=== PATIENT | female | born 1975 | race Caucasian/White ===

== ENCOUNTER 2019-11-20 00:05 | Emergency (ER) | payer SELFPAY ==
[2019-11-20] MEDS ORDERED: MORPHINE SULFATE 10 MG/ML INJ IV ONE ×2 (00:23→06:44)
[2019-11-20] MEDS ORDERED: ONDANSETRON HCL INJ/PF 4 MG/2 ML SDV IV ONE (00:23)
[2019-11-20] MEDS ORDERED: NORMAL SALINE 1000 ML 1,000 ML IV ONE (00:23)
--- NOTE | 2019-11-20 00:31 | ER Document Report ---
ED GI/ - General Chief Complaint: Pelvic Pain Stated Complaint: PELVIC PAIN Time Seen by Provider: 11/20/19 00:18 Primary Care Provider: [facility] [Provider Group] - Follow up in 3-5 days Notes: Patient is a 44-year-old female that comes to the Emergency Department for chief complaint of sudden onset right lower abdominal/pelvic pain that started about 1 hour prior to arrival. She states pain is become very sharp, radiates to her lower back, has made her nauseated. She denies vomiting, fever, vaginal bleeding or discharge. She reports a history of PCOS and has had torsion surgically repaired in the past. She denies history of kidney stones. She also has a history of gastric bypass, appendectomy, cholecystectomy, hiatal hernia repair, peptic ulcers, and anemia. She states her last menstrual cycle was in 2017. - Related Data Allergies/Adverse Reactions: acetaminophen [From Percocet] Allergy (Severe, Verified 11/20/19 02:12) Hives oxycodone [From Percocet] Allergy (Severe, Verified 11/20/19 02:12) Hives ketorolac [From Toradol] Allergy (Intermediate, Verified 11/20/19 02:12) Past Medical History - General Information source: Patient - Social History Smoking Status: Never Smoker Frequency of alcohol use: None Drug Abuse: None Lives with: Family Family History: Reviewed & Not Pertinent Renal/ Medical History: Reports: Hx Ovarian Cysts GI Medical History: Reports: Hx Gastroesophageal Reflux Disease, Hx Hiatal Hernia, Hx Ulcer Past Surgical History: Reports: Hx Appendectomy, Hx Cholecystectomy, Hx Gastric Bypass Surgery - Immunizations Hx Diphtheria, Pertussis, Tetanus Vaccination: Yes Review of Systems - Review of Systems Constitutional: No symptoms reported EENT: No symptoms reported Cardiovascular: No symptoms reported Respiratory: No symptoms reported Gastrointestinal: See HPI Genitourinary: See HPI Female Genitourinary: See HPI Musculoskeletal: No symptoms reported Skin: No symptoms reported Hematologic/Lymphatic: No symptoms reported Neurological/Psychological: No symptoms reported Physical Exam - Vital signs Vitals: Temp Pulse Resp BP Pulse Ox 98.0 F 83 16 135/97 H 100 11/20/19 00:14 11/20/19 00:14 11/20/19 00:14 11/20/19 00:14 11/20/19 00:14 - Notes Notes: GENERAL: Patient anxious, restless, appears to be uncomfortable HEAD: Normocephalic, atraumatic. EYES: Pupils equal, round, and reactive to light. Extraocular movements intact. ENT: Oral mucosa moist, tongue midline. Oropharynx unremarkable. Airway patent. NECK: Full range of motion. Supple. Trachea midline. No lymphadenopathy. LUNGS: Clear to auscultation bilaterally, no wheezes, rales, or rhonchi. No respiratory distress. Non-tender chest wall. HEART: Regular rate and rhythm. No murmur ABDOMEN: There is tenderness in the general lower abdomen, worse on the right in the lower abdominal/pelvic region. No distention or severe guarding noted. Bowel sounds are present. GENITOURINARY: Deferred EXTREMITIES: Moves all 4 extremities spontaneously. No edema, normal radial and dorsalis pedis pulses bilaterally. No cyanosis. BACK: no cervical, thoracic, lumbar midline tenderness. No saddle anesthesia, normal distal neurovascular exam. Moves all extremities in full range of motion. NEUROLOGICAL: Alert and oriented x3. Normal speech. Cranial nerves II through XII grossly intact. Strength 5/5 in all extremities. PSYCH: Anxious and restless SKIN: Warm, dry, normal turgor. No rashes or lesions noted. Course - Re-evaluation Re-evalutation: Patient initially very anxious, she does have tenderness in the right lower abdominal area and in the lower abdomen generally. She denies any concerns for STD, she does not have vaginal bleeding or discharge. Ultrasound was performed but was negative. CBC unremarkable, chemistry unremarkable, urinalysis showing infection. Culture placed. Started on Rocephin. On reevaluation patient is anxious, holding her abdomen, stating she is in pain again. Because of her sudden onset pain, UTI, and the area being worse on the right along with some pain in her flank I am concerned this could be an infected ureterolithiasis, CT will be performed. X-ray does not show foreign body. CT does show retained aluminum foreign body in the right lower abdomen. No perforation, no obstruction, no concerning findings. Patient is already had an appendectomy, there is no passing stone. Discussed with Dr. Rooney, she recommends I speak with surgery. 11/20/19 06:30 I called and spoke with Dr. Isidro in regards to the retained aluminum foreign body in the location of patient's pain. He states because the area is not perforated, she does not have an obstruction, the only treatment for this would be laparotomy and bowel resection, he states this is not indicated and this should pass. He recommends treatment of the infection, symptoms, with return precautions. I discussed this in detail with patient. She does state appreciation and agreement with this plan, understands return precautions. Vital signs unremarkable. Patient stable and well-appearing at time of discharge. - Vital Signs Vital signs: Temp Pulse Resp BP Pulse Ox 98.7 F 83 18 133/82 H 97 11/20/19 05:00 11/20/19 00:14 11/20/19 04:44 11/20/19 05:01 11/20/19 05:01 - Laboratory Result Diagrams: 11/20/19 01:58 11/20/19 01:30 Laboratory results interpreted by me: 11/20/19 11/20/19 00:40 01:30 AST 50 H ALT 42 H Ur Leukocyte Esterase LARGE H Urine Ascorbic Acid 20 H Discharge - Discharge Clinical Impression: Lower abdominal pain Condition: Stable Disposition: HOME, SELF-CARE Additional Instructions: You do not have an ovarian cyst. You do have a urinary tract infection, take the antibiotics as prescribed to completion. You are passing the aluminum foreign body, this is in your bowel, this does not appear to be perforated, obstructed, or to have any acute abnormality. You can take the pain medication but this can constipate you, I highly recommend that you take the stool softener as well if you do. Take the nausea medication as needed. Return if you worsen including severe worsening pain, swelling of the abdomen, fever, vomiting, black/bloody stools, or any other concerning symptoms. Prescriptions: Cephalexin Monohydrate [Keflex 500 mg Capsule] 500 mg PO BID 7 Days #14 capsule Polyethylene Glycol 3350 [Miralax Powder 17 gm/Packet] 1 packet PO DAILY PRN #1 pkg PRN Reason: Morphine Sulfate [Morphine Ir 15 Mg Tablet] 15 mg PO TID PRN #12 tablet PRN Reason: Ondansetron [Zofran Odt 4 mg Tablet] 1 - 2 tab PO Q4H PRN #15 tab.rapdis PRN Reason: For Nausea/Vomiting Referrals: [facility] [Provider Group] - Follow up in 3-5 days
[2019-11-20 01:51] LABS: ALBUMIN 4.6 g/dL (3.5-5.0); ALKALINE PHOSPHATASE 104 U/L (38-126); ANION GAP 7 (5-19); ASPARTATE AMINO TRANSFERASE 50 U/L (14-36); BILIRUBIN,TOTAL 0.3 mg/dL (0.2-1.3); BLOOD UREA NITROGEN 9 mg/dL (7-20); CALCIUM 9.6 mg/dL (8.4-10.2); CARBON DIOXIDE 29 mmol/L (22-30); CHLORIDE 104 mmol/L (98-107); GLUCOSE 105 mg/dL (75-110); POTASSIUM 3.8 mmol/L (3.6-5.0)
[2019-11-20 02:10] LABS: ABSOLUTE EOSINOPHILS # (AUTO) 0.1 10^3/uL (0.0-0.6); ABSOLUTE LYMPHOCYTES (AUTO) 1.3 10^3/uL (0.5-4.7); ABSOLUTE MONOCYTES (AUTO) 0.3 10^3/uL (0.1-1.4); ABSOLUTE NEUT (AUTO) 3.5 10^3/uL (1.7-8.2); BASOPHILS % (AUTO) 0.6 % (0-2); EOSINOPHILS % (AUTO) 1.8 % (0-6); HEMATOCRIT 40.4 % (36.0-47.0); HEMOGLOBIN 14.4 g/dL (12.0-15.5); LYMPHOCYTES % (AUTO) 25.1 % (13-45); MEAN CORPUSCULAR HEMOGLOBIN 31.9 pg (27.0-33.4); MEAN CORPUSCULAR HGB CONC 35.7 g/dL (32.0-36.0); MEAN CORPUSCULAR VOLUME 89 fl (80-97); MONOCYTES % (AUTO) 5.3 % (3-13); PLATELET COUNT 307 10^3/uL (150-450); RED BLOOD COUNT 4.53 10^6/uL (3.72-5.28); RED CELL DISTRIBUTION WIDTH 12.7 % (11.5-14.0); SEGMENTED NEUTROPHILS % (AUTO) 67.2 % (42-78); TOTAL CELLS COUNTED % (AUTO) 100 %; WHITE BLOOD COUNT 5.3 10^3/uL (4.0-10.5)
[2019-11-20] MEDS ORDERED: DIPHENHYDRAMINE HCL 50 MG/ML VIAL IV ONE ×3 (02:21→06:44)
[2019-11-20 02:28] LABS: APPEARANCE,URINE SLIGHTLY-CLOUDY; BILIRUBIN,URINE NEGATIVE (NEGATIVE); COLOR,URINE YELLOW; GLUCOSE, URINE NEGATIVE (NEGATIVE); KETONES,URINE NEGATIVE (NEGATIVE); LEUKOCYTE ESTERASE,URINE LARGE (NEGATIVE); NITRITE,URINE NEGATIVE (NEGATIVE); PROTEIN,URINE NEGATIVE (NEGATIVE); URINE SPECIFIC GRAVITY 1.013; UROBILINOGEN,URINE NEGATIVE mg/dL (<2.0)
[2019-11-20] MEDS ORDERED: CEFTRIAXONE 1 GM/D5W RTU 1 GM/50 ML RTUPB IV ONE (02:39)
--- NOTE | 2019-11-20 03:11 | RADIOLOGY REPORT (SQ) ---
EXAM DESCRIPTION: US PELVIS TRANSVAGINAL COMPLETED DATE/TME: 11/20/2019 00:24 CLINICAL HISTORY: 44 years Female, right pelvic pain, nausea, hx cysts and torsion Comparison: None. Technique: Transvaginal. LIMITATIONS: Bowel gas. FINDINGS: 6-cm uterus, 0.24-cm endometrial stripe thickness, nonvisualized bilateral ovaries appear otherwise unremarkable in size, shape, echotexture, and vascularity. No free fluid. IMPRESSION: No acute findings. Endometrial atrophy-hypoplasia. Nonvisualized ovaries.
[2019-11-20] MEDS ORDERED: HYDROMORPHONE HCL INJ/PF 2 MG/ML AMPULE IV ONE (04:23)
--- NOTE | 2019-11-20 04:28 | RADIOLOGY REPORT (SQ) ---
EXAM DESCRIPTION: XR ABDOMEN 2 VIEWS SUPINE ERECT COMPLETED DATE/TME: 11/20/2019 00:23 CLINICAL HISTORY: 44 years Female, right abd/pelvic pain, swallowed bottle cap COMPARISON: None. NUMBER OF VIEWS/TECHNIQUE: 1 FINDINGS: Intestinal gas pattern is within normal limits. No suspicious calcification. Grossly intact skeletal structures. Abdominal clips/suture. No additional radiopaque foreign body or complication identified. Hepatic silhouette measures up to 25 cm. IMPRESSION: Hepatomegaly. Abdominal clips.
--- NOTE | 2019-11-20 06:19 | RADIOLOGY REPORT (SQ) ---
EXAM DESCRIPTION: CT ABDOMEN PELVIS WITHOUT IV CONTRAST COMPLETED DATE/TME: 11/20/2019 04:23 CLINICAL HISTORY: 44 years Female, right abd/flank pain, UTI. STATES SWALLOWED ALUMINUM TAB 11/17/19.HCG NEG Comparison: None. Technique: No contrast. Coronal and sagittal reformat. This exam was performed according to our departmental dose-optimization program, which includes automated exposure control, adjustment of the mA and/or kV according to patient size and/or use of iterative reconstruction technique.[facility]: Dose Right [facility]: CareDose [facility]: Dose Right [facility]: Teradose 4D [facility]: Comecer LIMITATIONS: None Findings: Metallic foreign body consistent with described aluminum tab, intraluminal at the probable distal ileum without complication. Image 39-40, series 602. 21.6 cm liver. Upper abdominal suture-clips. No ascites. No pneumoperitoneum. No evidence of appendicitis. Appendix not definitively discerned/appendectomy. Cholecystectomy. No bowel obstruction. No hydronephrosis or hydroureter. No renal/ureteral stone. No evidence of abdominal aortic aneurysm. No gross evidence of thecal sac/cord or nerve root compression. Unenhanced lower thorax, abdominopelvic structures, and musculoskeleton appear otherwise grossly unremarkable. Impression: 1. Metallic foreign body within the distal small bowel without complication. 2. Mild hepatomegaly.
[2019-11-20 07:36] VITALS: BP 123/71
== END 2019-11-20 07:36 | disposition home or self-care (01) ==
LOC: ER 00:05
DX: R10.30 Lower abdominal pain, unspecified (principal); R10.2 Pelvic and perineal pain; R10.31 Right lower quadrant pain; M54.5 Low back pain; R11.0 Nausea; Z90.49 Acquired absence of other specified parts of digestive tract; Z98.84 Bariatric surgery status; Z90.89 Acquired absence of other organs; Z88.8 Allergy status to other drugs, medicaments and biological substances
CPT/HCPCS: 96376; 99284; 96361; 96375; 96365; 36415; 87086; 84703; 85025; 80053; 81001; 74019; 76830; 93976; 74176; J1200; J2270; J1170; J2405; J7030; J0696